=== PATIENT | male | born 1995 | race Caucasian/White ===

== ENCOUNTER 2023-03-16 02:26 | Emergency (ER) | payer MEDICAID ==
[~2023-03-16] VITALS: Ht 185.4 cm; Wt 63.5 kg
[2023-03-16] MEDS ORDERED: TDAP [DIPH/PERTUSSIS/TET] 0.5 ML VIAL IM ONE ×2 (02:51→03:00)
[2023-03-16 04:13] VITALS: BP 133/82; TEMP 98.3; O2SAT 100
== END 2023-03-16 04:13 | disposition home or self-care (01) ==
LOC: ER 02:37
DX: S01.01XA Laceration without foreign body of scalp, initial encounter (principal); Z60.2 Problems related to living alone; W20.8XXA Other cause of strike by thrown, projected or falling object, initial encounter; Y93.89 Activity, other specified; Y92.89 Other specified places as the place of occurrence of the external cause; Y99.8 Other external cause status
CPT/HCPCS: 70450-TC; 90715

== ENCOUNTER 2023-08-28 03:05 | Emergency (ER) | payer MEDICAID, OTHER ==
[~2023-08-28] VITALS: Ht 190.5 cm; Wt 65.8 kg
[2023-08-28 03:18] VITALS: TEMP 97.7
[2023-08-28] MEDS ORDERED: diphenhydrAMINE HCL 50 MG/ML VIAL ONE (03:51)
[2023-08-28] MEDS ORDERED: dexaMETHasone SOD PHOSPHATE 1 ML ONE (03:51)
[2023-08-28] MEDS ORDERED: Magnesium 1GM/D5W 100ML PREMIX 100 ML IV ONE (03:52)
[2023-08-28] MEDS ORDERED: METOCLOPRAMIDE HCL 10 MG/2 ML VIAL ONE (03:52)
[2023-08-28] MEDS: IV LR 1000 ML 1,000 ML BAG IV ONE (04:00)
[2023-08-28] MEDS: diphenhydrAMINE HCL 50 MG/ML VIAL IV ONE (04:00)
[2023-08-28] MEDS: Magnesium 1GM/D5W 100ML PREMIX 100 ML IV ONE (04:00)
[2023-08-28] MEDS: dexaMETHasone SOD PHOSPHATE 10 MG/ML VIAL IV ONE (04:00)
[2023-08-28] MEDS: METOCLOPRAMIDE HCL 10 MG/2 ML VIAL IV ONE (04:00)
[2023-08-28 05:49] VITALS: BP 131/72; O2SAT 100
== END 2023-08-28 05:49 | disposition home or self-care (01) ==
LOC: ER 03:08
DX: R51.9 Headache, unspecified (principal); F17.200 Nicotine dependence, unspecified, uncomplicated; Z98.890 Other specified postprocedural states; Z60.2 Problems related to living alone
CPT/HCPCS: 99285; 96365; 96375; 70450; J1100; J1200; J2765; J7120 ×2; J3475

== ENCOUNTER 2024-07-03 20:20 | Emergency (ER) | payer MEDICAID, OTHER ==
[~2024-07-03] VITALS: Ht 188 cm; Wt 66.2 kg
[2024-07-03] MEDS: IV NS 0.9% 1,000 ML IV ONE (22:00)
[2024-07-03] MEDS: Magnesium 1GM/D5W 100ML PREMIX 100 ML IV SCH (22:00)
[2024-07-03] MEDS: diphenhydrAMINE HCL 50 MG/ML VIAL IV ONE (22:00)
[2024-07-03] MEDS: dexaMETHasone SOD PHOSPHATE 10 MG/ML VIAL IV ONE (22:00)
[2024-07-03] MEDS: METOCLOPRAMIDE HCL 10 MG/2 ML VIAL IV ONE (22:00)
[2024-07-03] MEDS ORDERED: Magnesium 1GM/D5W 100ML PREMIX 100 ML IV ONE (22:10)
[2024-07-03] MEDS ORDERED: METOCLOPRAMIDE HCL 10 MG/2 ML VIAL ONE (22:10)
[2024-07-03] MEDS ORDERED: dexaMETHasone SOD PHOSPHATE 1 ML ONE (22:10)
[2024-07-03] MEDS ORDERED: diphenhydrAMINE HCL 50 MG/ML VIAL ONE (22:10)
[2024-07-03 22:22] LABS: BASOPHILS % (AUTO) 0.3 % (0.0-2.0); EOSINOPHILS # (AUTO) 0.1 K/uL (0.0-0.7); HEMATOCRIT 38 % (39-51); HEMOGLOBIN 13.1 g/dL (13.5-17.5); LYMPHOCYTES # (AUTO) 1.4 K/uL (0.8-4.8); LYMPHOCYTES % (AUTO) 22.3 % (20.0-44.0); MEAN CORPUSCULAR HEMOGLOBIN 29 PG (26.0-33.0); MEAN CORPUSCULAR HGB CONC 35 g/dl (31.0-36.0); MEAN CORPUSCULAR VOLUME 84 fL (80-96); MONOCYTES # (AUTO) 0.5 K/uL (0.1-1.30); MONOCYTES % (AUTO) 7.3 % (2.0-12.0); NEUTROPHILS # (AUTO) 4.4 K/uL (1.8-8.9); NEUTROPHILS % (AUTO) 69.1 % (43.0-81.0); PLATELET COUNT (AUTO) 238 K/uL (150-450); RED BLOOD CELL COUNT(AUTO) 4.56 MIL/uL (4.5-6.0); RED CELL DISTRIBUTION WIDTH 14.3 % (11.5-15.0); WHITE BLOOD COUNT (AUTO) 6.4 K/uL (4.3-11.0)
[2024-07-03 22:35] LABS: ALBUMIN 4.4 g/dL (3.4-5.0); BILIRUBIN,TOTAL 0.6 mg/dL (0.2-1.0); CALCIUM, SERUM 9.2 mg/dL (8.5-10.1); CREATININE 0.7 mg/dL (0.6-1.3); TOTAL PROTEIN, SERUM 7.8 g/dL (6.4-8.2)
[2024-07-03 23:00] LABS: POTASSIUM 3.4 mmol/L (3.5-5.1)
[2024-07-03] MEDS ORDERED: KETO10TA2 PO (23:10)
[2024-07-03 23:26] VITALS: BP 112/76; TEMP 98; O2SAT 99
== END 2024-07-03 23:27 | disposition home or self-care (01) ==
LOC: ER 21:23
DX: G43.909 Migraine, unspecified, not intractable, without status migrainosus (principal); F17.200 Nicotine dependence, unspecified, uncomplicated; Z91.041 Radiographic dye allergy status; Z60.2 Problems related to living alone; Z88.8 Allergy status to other drugs, medicaments and biological substances
CPT/HCPCS: 99284; 96365; 96375; 85025; 36415; 80053; J1100; J1200; J2765; J3475

== ENCOUNTER 2024-09-15 04:13 | Emergency (ER) | payer MEDICAID ==
[~2024-09-15] VITALS: Ht 190.5 cm; Wt 74.8 kg
[~2024-09-15 04:13] MED LIST: KETO10TA2 PO
[2024-09-15] MEDS ORDERED: IBUPROFEN 600 MG TABLET ONE (05:58)
[2024-09-15] MEDS: IBUPROFEN 600 MG TABLET PO ONE (06:02)
[2024-09-15] MEDS: ONDANSETRON 4 MG TAB.RAPDIS SL ONE (06:03)
[2024-09-15] MEDS ORDERED: LIDOCAINE 1% INJ 50 ML MDV IJ ONE (07:53)
[2024-09-15] MEDS: LIDOCAINE HCL/PF 1% 30 ML VIAL TP ONE (07:56)
[2024-09-15 08:15] VITALS: BP 125/70; TEMP 98.5; O2SAT 99
== END 2024-09-15 08:17 | disposition home or self-care (01) ==
LOC: ER 04:23
DX: S01.511A Laceration without foreign body of lip, initial encounter (principal); F17.200 Nicotine dependence, unspecified, uncomplicated; Z88.8 Allergy status to other drugs, medicaments and biological substances; Z91.041 Radiographic dye allergy status; Z60.2 Problems related to living alone; X58.XXXA Exposure to other specified factors, initial encounter; Y93.89 Activity, other specified; Y92.89 Other specified places as the place of occurrence of the external cause; Y99.8 Other external cause status
CPT/HCPCS: 12011; 70486; 99284; J3490

== ENCOUNTER 2024-09-16 08:06 | Emergency (ER) | payer MEDICAID ==
[~2024-09-16] VITALS: Ht 190.5 cm; Wt 70.3 kg
[2024-09-16 08:10] VITALS: BP 124/74; TEMP 98.3
[2024-09-16 08:30] VITALS: O2SAT 99
== END 2024-09-16 08:31 | disposition home or self-care (01) ==
LOC: ER 08:09
DX: S01.511D Laceration without foreign body of lip, subsequent encounter (principal); F17.200 Nicotine dependence, unspecified, uncomplicated; Z88.8 Allergy status to other drugs, medicaments and biological substances; Z91.041 Radiographic dye allergy status; X58.XXXD Exposure to other specified factors, subsequent encounter

== ENCOUNTER 2024-11-03 07:52 | Emergency (ER) | payer MEDICAID, OTHER ==
[~2024-11-03] VITALS: Ht 190.5 cm; Wt 68.0 kg
[2024-11-03] MEDS ORDERED: ONDANSETRON HCL/PF 4 MG/2 ML VIAL ONE (09:28)
[2024-11-03] MEDS ORDERED: MORPHINE SULFATE INJ 4 MG/ML DISP.SYRIN ONE (09:28)
[2024-11-03] MEDS ORDERED: ONDANSETRON HCL/PF 4 MG/2 ML VIAL IVP ONE (09:30)
[2024-11-03] MEDS ORDERED: MORPHINE SULFATE INJ 2 MG/ML DISP.SYRIN IV ONE (09:30)
[2024-11-03] MEDS ORDERED: KETOROLAC TROMETHAMINE 15 MG/ML VIAL ONE (09:40)
[2024-11-03 09:42] LABS: BASOPHILS % (AUTO) 0.4 % (0.0-2.0); EOSINOPHILS # (AUTO) 0.2 K/uL (0.0-0.7); EOSINOPHILS % (AUTO) 2.4 % (0.0-6.0); HEMATOCRIT 41 % (39-51); HEMOGLOBIN 13.7 g/dL (13.5-17.5); LYMPHOCYTES # (AUTO) 1.5 K/uL (0.8-4.8); LYMPHOCYTES % (AUTO) 18.5 % (20.0-44.0); MEAN CORPUSCULAR HEMOGLOBIN 27 PG (26.0-33.0); MEAN CORPUSCULAR HGB CONC 33 g/dl (31.0-36.0); MEAN CORPUSCULAR VOLUME 82 fL (80-96); MONOCYTES # (AUTO) 0.7 K/uL (0.1-1.30); MONOCYTES % (AUTO) 8.8 % (2.0-12.0); NEUTROPHILS # (AUTO) 5.8 K/uL (1.8-8.9); NEUTROPHILS % (AUTO) 69.9 % (43.0-81.0); PLATELET COUNT (AUTO) 263 K/uL (150-450); RED BLOOD CELL COUNT(AUTO) 5.02 MIL/uL (4.5-6.0); RED CELL DISTRIBUTION WIDTH 14.4 % (11.5-15.0); WHITE BLOOD COUNT (AUTO) 8.3 K/uL (4.3-11.0)
[2024-11-03] MEDS: KETOROLAC TROMETHAMINE 15 MG/ML VIAL IV ONE (09:43)
[2024-11-03 09:53] LABS: CALCIUM, SERUM 9.5 mg/dL (8.5-10.1); CARBON DIOXIDE 31 mmol/L (21-32); CHLORIDE 102 mmol/L (98-107); CREATININE 0.9 mg/dL (0.6-1.3); GLUCOSE 98 mg/dL (74-106); POTASSIUM 3.6 mmol/L (3.5-5.1); SODIUM SERUM 141 mmol/L (136-145); UREA NITROGEN, BLOOD 10 mg/dL (7-18)
[2024-11-03] MEDS ORDERED: NAPR-1009 PO (10:38)
[2024-11-03 10:48] VITALS: BP 121/81; TEMP 97.6; O2SAT 99
== END 2024-11-03 10:49 | disposition home or self-care (01) ==
LOC: ER 07:59
DX: R07.89 Other chest pain (principal); R06.02 Shortness of breath; F17.200 Nicotine dependence, unspecified, uncomplicated; Z88.8 Allergy status to other drugs, medicaments and biological substances; Z87.09 Personal history of other diseases of the respiratory system
CPT/HCPCS: 99285; 96374; 71045; 93005; 85025; 80048; 36415; 84484; J1885; J2270; J2405